=== PATIENT | male | born 1955 | race Caucasian/White ===

== ENCOUNTER 2017-09-15 23:11 | Emergency (ER) | payer OTHER, MEDICARE ==
--- NOTE | 2017-09-15 23:39 | ED DYSPNEA/ASTHMA COMPLAINT ---
History of Present Illness General Chief Complaint: Dyspnea (COPD, CHF, Other) Stated Complaint: "IM HAVING A PANIC ATTACKDIFF BREATHING" Source: patient Exam Limitations: no limitations Vital Signs & Intake/Output Vital Signs & Intake/Output Vital Signs Date Time Temp Pulse Resp B/P B/P Pulse O2 O2 Flow FiO2 Mean Ox Delivery Rate 09/154 97.4 77 19 148/83 97 Room Air ED Intake and Output 09/16 0000 09/15 1200 Intake Total Output Total Balance Patient 170 lb Weight Weight Reported by Patient Measurement Method Allergies Coded Allergies: No Known Allergies (09/15/17) Reconcile Medications Azithromycin (Zithromax) 500 MG TABLET 1 TAB PO DAILY BRONCHITIS Benzonatate (Tessalon Perle) 100 MG CAPSULE 1 CAP PO TID PRN INFLAMMATION [MAGIC MOUTH WASH] 10 ML PO TID PRN SORE THROAT Methylprednisolone. (Medrol) 4 MG TAB.DS.PK 1 DP PO AD INFLAMMATION 6 on day 1 then reduce by one tablet daily until gone Triage Note: PT TO ED WITH C/O SORE THROAT X 3 DAYS, REPORTS DIFFICULTY SWALLOWING. ABLE TO HANDLE SECRETIONS. SPEAKING IN FULL SENTENCES. 02 SAT 97%RA. ALSO REPORTS MILD SOB ON EXERTION. Triage Nurses Notes Reviewed? yes Onset: Gradual Duration: constant Timing: recent history Severity: moderate HPI: Patient is a 61-year-old male with a past medical history of COPD who is EVERYDAY smoker compliant with Ventolin and ANORA, diabetes who presents emergency room with concerns of a three-day history of sore throat and hoarseness of voice work today he has been complaining of nonproductive cough and painful swallowing where he became anxious due to shortness of breath symptoms earlier this afternoon. Patient states that the anxiety shortness of breath has improved however still complaining of sore throat. Patient can tolerate by mouth denies any chest pain and arm pain jaw pain nausea vomiting leg swelling or hemoptysis fever or chills. (Hector Tirado) Past History Travel History Traveled to [place] past 21 day No Medical History Any Pertinent Medical History? see below for history Cardiovascular: hypertension Respiratory: COPD Endocrine: diabetes Surgical History Surgical History: non-contributory Psychosocial History What is your primary language Chinese Tobacco Use: Current Daily Use Daily Tobacco Use Amount/Type: => 5 Cigarettes daily ETOH Use: denies use Family History Hx Contributory? No (Hector Tirado) Review of Systems Review of Systems Constitutional: Reports: no symptoms. EENTM: Reports: see HPI. Respiratory: Reports: see HPI, cough, short of breath. Cardiovascular: Reports: no symptoms. GI: Reports: no symptoms. Genitourinary: Reports: no symptoms. Musculoskeletal: Reports: no symptoms. Skin: Reports: no symptoms. Neurological/Psychological: Reports: see HPI, anxiety. Hematologic/Endocrine: Reports: no symptoms. Immunologic/Allergic: Reports: no symptoms. All Other Systems: Reviewed and Negative (Hector Tirado) Physical Exam Physical Exam General Appearance: no apparent distress, alert, comfortable Head: atraumatic Eyes: Bilateral: normal appearance. Ears, Nose, Throat: hearing grossly normal Neck: normal inspection Respiratory: normal breath sounds, chest non-tender, no respiratory distress Cardiovascular: regular rate/rhythm Gastrointestinal: normal bowel sounds, soft, non-tender Neurologic/Psych: no motor/sensory deficits Skin: intact, normal color, warm/dry Core Measures ACS in differential dx? Yes CVA/TIA Diagnosis No Sepsis Present: No Sepsis Focused Exam Completed? No (Hector Tirado) Progress Differential Diagnosis: asthma, AMI, bronchitis, costochondritis, CHF, COPD, musculoskeletal pain, pericarditis, pulmonary embolism, pneumonia, pneumothorax, rib fracture, unstable angina Plan of Care: Orders Procedure Date/time Status THROAT CULTURE W/QUICK STREP 09/16 8 Active TROPONIN LEVEL 09/16 8 Complete D-DIMER 09/16 8 Complete COMPREHENSIVE METABOLIC PANEL 09/16 8 Complete CBC WITHOUT DIFFERENTIAL 09/16 8 Complete EKG 09/16 8 Active Laboratory Tests 09/16/17 0030: Anion Gap 14, Estimated GFR > 60, BUN/Creatinine Ratio 13.8, Glucose 100 H, Calcium 9.5, Total Bilirubin 0.6, AST 24, ALT 31, Alkaline Phosphatase 69, Troponin I < 0.01, Total Protein 8.0, Albumin 4.7, Globulin 3.3, Albumin/ Globulin Ratio 1.4, D-Dimer High Sensitivty < 200, CBC w Diff NO MAN DIFF REQ, RBC 5.35, MCV 89.1, MCH 30.1, MCHC 33.7, RDW 15.1 H, MPV 7.3 L, Gran % 79.3 H , Lymphocytes % 13.1 L, Monocytes % 4.9, Eosinophils % 1.9, Basophils % 0.8, Absolute Granulocytes 11.5 H, Absolute Lymphocytes 1.9, Absolute Monocytes 0.7 H, Absolute Eosinophils 0.3, Absolute Basophils 0.1 Patient upon initial examination was resting comfortably at bedside (afebrile clear lungs auscultation oxygen saturation 96% room air. No exudates a pharynx CENTOR criteria [address] off [address] dr dorsey Initial ED EKG: normal intervals, normal p-waves, normal QRS complex, 65 BPM,NSR Hand-Off Endorsed To: Mich Dorsey MD Endorsed Time: 0100 Pending: labs (Hector Tirado) Departure Departure Disposition: HOME OR SELF CARE Condition: Stable Clinical Impression Primary Impression: Pharyngitis Referrals: Edith Bonds MD (PCP/Family) Additional Instructions: As discussed please discontinue smoking, began a prescription for magic mouthwash for sore throat and Tessalon Perles for cough Medrol Dosepak for inflammation and azithromycin for symptoms. If symptoms worsen return to emergency room. If no better on Tuesday follow-up with your doctor Departure Forms: Customer Survey General Discharge Information Prescriptions: Current Visit Scripts [MAGIC MOUTH WASH] 10 ML PO TID PRN SORE THROAT #100 ML Methylprednisolone. (Medrol) 1 DP PO AD #1 DP 6 on day 1 then reduce by one tablet daily until gone Benzonatate (Tessalon Perle) 1 CAP PO TID PRN INFLAMMATION #15 CAP Azithromycin (Zithromax) 1 TAB PO DAILY #5 TAB (Hector Tirado) Departure Time of Disposition: 146 PA/TEXTILE COATING MACHINE OPERATOR Co-Sign Statement Statement: ED Attending supervision documentation- x I saw and evaluated the patient. I have also reviewed all the pertinent lab results and diagnostic results. I agree with the findings and the plan of care as documented in the PA's/TEXTILE COATING MACHINE OPERATOR's documentation. [] I have reviewed the ED Record and agree with the PA's/TEXTILE COATING MACHINE OPERATOR's documentation. [] Additions or exceptions (if any) to the PAs/TEXTILE COATING MACHINE OPERATOR's note and plan are summarized below: [] (Mich Dorsey MD) Critical Care Note Critical Care Note Critical Care Time: non-applicable (Hector Tirado)
[2017-09-16 00:53] LABS: ABSOLUTE BASOPHIL COUNT 0.1 /CUMM (0.0-0.2); ABSOLUTE EOSINOPHIL COUNT 0.3 /CUMM (0.0-0.7); ABSOLUTE GRANULOCYTE CT 11.5 /CUMM (1.4-6.5); ABSOLUTE LYMPH COUNT 1.9 /CUMM (1.2-3.4); ABSOLUTE MONOCYTE COUNT 0.7 /CUMM (0.10-0.60); BASOPHIL % 0.8 % (0.0-2.0); EOSINOPHIL % 1.9 % (0-5); GRANULOCYTE % 79.3 % (42.2-75.2); HEMATOCRIT 47.7 % (42-52); MEAN CORPUSCULAR HGB 30.1 PG (27.0-31.0); MEAN CORPUSCULAR HGB CONC 33.7 G/DL (33.0-37.0); MEAN CORPUSCULAR VOLUME 89.1 FL (80.0-94.0); MEAN PLATELET VOLUME 7.3 FL (7.4-10.4); PLATELET COUNT 268 /CUMM (130-400); RBC DISTRIBUTION WIDTH 15.1 % (11.5-14.5); RED BLOOD CELL CT 5.35 /CUMM (4.70-6.10); WHITE BLOOD CELL COUNT 14.5 /CUMM (4.8-10.8)
[2017-09-16] MEDS ORDERED: ZITHROMAX500 M2 PO (00:57)
[2017-09-16] MEDS ORDERED: MAGIC MOUTH WASH PO (00:57)
[2017-09-16] MEDS ORDERED: MEDROL4 M2 PO ×2 (00:57→02:04)
[2017-09-16] MEDS ORDERED: TESSALON PERLE100 M1 PO ×2 (00:57→02:04)
[2017-09-16 01:49] VITALS: BP 145/78
[2017-09-16] MEDS ORDERED: IBUPROFEN600 M1 PO (02:00)
[2017-09-16] MEDS ORDERED: HYDROXYZINE HCL25 M2 PO (02:00)
[2017-09-16] MEDS ORDERED: Magic mouthwash PO (02:04)
[2017-09-16] MEDS ORDERED: ZITHROMAX250 M2 PO (02:04)
== END 2017-09-16 02:11 ==
LOC: ERH 23:11
PROVIDERS: Physician Assistant
DX: J02.9 Acute pharyngitis, unspecified (principal); F17.210 Nicotine dependence, cigarettes, uncomplicated
CPT/HCPCS: 1263; 93005; 93010

== ENCOUNTER 2018-01-10 05:07 | Emergency (ER) | payer OTHER, MEDICARE ==
[~2018-01-10 05:07] MED LIST: HYDROXYZINE HCL25 M2 PO; IBUPROFEN600 M1 PO; MAGIC MOUTH WASH PO; MEDROL4 M2 PO; Magic mouthwash PO; TESSALON PERLE100 M1 PO; ZITHROMAX250 M2 PO; ZITHROMAX500 M2 PO
--- NOTE | 2018-01-10 05:48 | ED DYSPNEA/ASTHMA COMPLAINT ---
History of Present Illness General Chief Complaint: Dyspnea (COPD, CHF, Other) Stated Complaint: "I CAN'T BREATH, PANCIK ATTACK"HR 75 AND SPO2 96% Source: patient, old records Exam Limitations: no limitations Vital Signs & Intake/Output Vital Signs & Intake/Output Vital Signs Date Time Temp Pulse Resp B/P B/P Pulse O2 O2 Flow FiO2 Mean Ox Delivery Rate 01/10 0513 97.7 64 20 145/78 94 Room Air Allergies Coded Allergies: No Known Allergies (09/15/17) Reconcile Medications Azithromycin (Zithromax) 250 MG TABLET 1 DP PO AD pharyngitis Start tomorrow Benzonatate (Tessalon Perle) 100 MG CAPSULE 1 CAP PO TID PRN cough Hydroxyzine Hydrochloride (Atarax) 25 MG TAB 1-2 TAB PO Q6P PRN anxiety Ibuprofen 600 MG TABLET 1 TAB PO Q6P PRN pain with food [Magic mouthwash] 5-10 ML PO Q6P PRN pain 1:1:1=viscous lidocaine, maalox, benadryl Methylprednisolone. (Medrol) 4 MG TAB.DS.PK 0 PO SEE ADMIN CRITERIA pharyngitis Triage Note: TRIAGE: PATIENT TO ER FROM HOME REPORTING HX COPD, HERE TONIGHT FOR COPD VS. "PANIC ATTACK." PATIENT REPORTING +SOB AT THIS TIME, "SCARES THE SH*T OUT OF ME." SPEECH CLEAR. MD PLUMMER EVALUATING PATIENT IN TRIAGE. Triage Nurses Notes Reviewed? yes HPI: Patient presents feeling like he can't breathe. Patient has emphysema and he continues to smoke. Patient states that he also suffers from panic attacks. Patient states that over the past 2 days he has been having worsening symptoms dyspnea on exertion and orthopnea. He states that he lays down and just feels like he cannot breathe so he sits up. Patient states that he has not slept in the past 2 days because of these symptoms. He denies any leg swelling or anorexia. There are no fevers or chills. There is no coughing. There is no chest pain. There are no palpitations. Past History Travel History Traveled to [place] past 21 day No Medical History Any Pertinent Medical History? see below for history Neurological: NONE EENT: NONE Cardiovascular: hypertension Respiratory: COPD Gastrointestinal: NONE Hepatic: NONE Renal: NONE Musculoskeletal: NONE Psychiatric: anxiety Endocrine: diabetes Blood Disorders: NONE Cancer(s): NONE NETWORK SUPPORT/Reproductive: NONE Surgical History Surgical History: non-contributory Psychosocial History What is your primary language Irish Tobacco Use: Current Daily Use Daily Tobacco Use Amount/Type: => 5 Cigarettes daily ETOH Use: occasional use Illicit Drug Use: denies illicit drug use Family History Hx Contributory? No Review of Systems Review of Systems Constitutional: Reports: no symptoms. EENTM: Reports: no symptoms. Respiratory: Reports: see HPI, cough, orthopnea, short of breath. Cardiovascular: Reports: no symptoms. GI: Reports: no symptoms. Genitourinary: Reports: no symptoms. Musculoskeletal: Reports: no symptoms. Skin: Reports: no symptoms. Neurological/Psychological: Reports: no symptoms. Hematologic/Endocrine: Reports: no symptoms. Immunologic/Allergic: Reports: no symptoms. All Other Systems: Reviewed and Negative Physical Exam Physical Exam General Appearance: well developed/nourished, alert, awake, anxious, moderate distress Head: atraumatic, normal appearance Eyes: Bilateral: PERRL, EOMI. Ears, Nose, Throat: normal pharynx, normal ENT inspection, hearing grossly normal Neck: normal inspection, supple, full range of motion, NO jvd Respiratory: decreased breath sounds, wheezing, respiratory distress Cardiovascular: regular rate/rhythm, normal peripheral pulses Gastrointestinal: normal bowel sounds, soft, non-tender, no organomegaly Extremities: normal inspection, normal capillary refill, normal range of motion, no edema Neurologic/Psych: no motor/sensory deficits, awake, alert, oriented x 3, normal gait, normal mood/affect Skin: intact, normal color, warm/dry Lymphatic: no anterior cervical pino Core Measures ACS in differential dx? No CVA/TIA Diagnosis No Sepsis Present: No Sepsis Focused Exam Completed? No Progress Differential Diagnosis: AMI, bronchitis, CHF, COPD, pulmonary embolism, pneumonia Plan of Care: Orders Procedure Date/time Status ARTERIAL BLOOD GAS (GEN) 01/10 0553 Complete Telemetry/Route Vending Machine Servicer 01/10 0548 Active TROPONIN LEVEL 01/10 0548 Complete COMPREHENSIVE METABOLIC PANEL 01/10 0548 Complete CBC WITHOUT DIFFERENTIAL 01/10 05 Complete B-TYPE NATRIURETIC PEP (BNP) 01/10 05 Complete EKG 01/10 0548 Active Laboratory Tests 01/10/ 0602: Anion Gap 10, Estimated GFR > 60, BUN/Creatinine Ratio 16.3, Glucose 112 H, Calcium 9.9, Total Bilirubin 0.7, AST 33, ALT 33, Alkaline Phosphatase 52, Troponin I < 0.01, Hyt-B-Nwrrkktmshr Pept 88.7, Total Protein 7.8, Albumin 4.8, Globulin 3.0, Albumin/Globulin Ratio 1.6, CBC w Diff MAN DIFF ORDERED, RBC 5.33, MCV 88.8, MCH 30.1, MCHC 33.9, RDW 14.7 H, MPV 7.2 L, Gran % 86.0 H, Lymphocytes % 7.2 L, Monocytes % 3.9, Eosinophils % 2.8, Basophils % 0.1, Absolute Granulocytes 11.0 H, Segmented Neutrophils 83 H, Absolute Lymphocytes 0.9 L, Lymphocytes 8 L, Monocytes 7, Absolute Monocytes 0.5, Eosinophils 2, Absolute Eosinophils 0.4, Absolute Basophils 0, Platelet Estimate ADEQUATE, Polychromasia 1+, Ovalocytes FEW, Stomatocytes FEW, Fld Total RBCs Counted 100 01/10/18 0555: pH 7.45, pCO2 35, pO2 61 L, HCO3 24, ABG O2 Sat (Measured) 92.0 L, P-50 (Temp Corrected) N, Carboxyhemoglobin 6.5 *H, O2 Concentration % RA, Phlebotomy Draw Site RIGHT BRACHIAL Diagnostic Imaging: Viewed by Me: Radiology Read. Discussed w/RAD: Radiology Read. Initial ED EKG: NSR, nonspecific ST T wave chg Prior EKG: unchanged Comments: Patient is feeling much better but still feels very anxious. Patient states he does suffer from anxiety but has not talked to his doctor about it. Patient denies any chest pain. Departure Departure Disposition: HOME OR SELF CARE Condition: Stable Clinical Impression Primary Impression: COPD exacerbation Secondary Impressions: Anxiety Referrals: Vamshi GALEAS,Edith Aguirre (PCP/Family) Additional Instructions: Take Ativan as needed. Return if symptoms worsen or for any concerns. Departure Forms: Customer Survey General Discharge Information Prescriptions: Current Visit Scripts Lorazepam (Ativan) 1 TAB PO BIDP PRN anxiety #20 TAB Critical Care Note Critical Care Note Critical Care Time: non-applicable
[2018-01-10 06:21] LABS: ABSOLUTE BASOPHIL COUNT 0 /CUMM (0.0-0.2); ABSOLUTE EOSINOPHIL COUNT 0.4 /CUMM (0.0-0.7); ABSOLUTE LYMPH COUNT 0.9 /CUMM (1.2-3.4); ABSOLUTE MONOCYTE COUNT 0.5 /CUMM (0.10-0.60); BASOPHIL % 0.1 % (0.0-2.0); EOSINOPHIL % 2.8 % (0-5); HEMATOCRIT 47.3 % (42-52); MEAN CORPUSCULAR HGB 30.1 PG (27.0-31.0); MEAN CORPUSCULAR HGB CONC 33.9 G/DL (33.0-37.0); MEAN CORPUSCULAR VOLUME 88.8 FL (80.0-94.0); MEAN PLATELET VOLUME 7.2 FL (7.4-10.4); PLATELET COUNT 243 /CUMM (130-400); RBC DISTRIBUTION WIDTH 14.7 % (11.5-14.5); RED BLOOD CELL CT 5.33 /CUMM (4.70-6.10); WHITE BLOOD CELL COUNT 12.8 /CUMM (4.8-10.8)
--- NOTE | 2018-01-10 06:42 | RADIOLOGY REPORT ---
EXAMINATION: XR CHEST CLINICAL INFORMATION: Shortness of breath COMPARISON: None TECHNIQUE: 2 views of the chest were obtained. FINDINGS: The lungs appear somewhat hyperinflated, suggesting underlying COPD. No focal consolidation. No evidence of pneumothorax, pulmonary edema, or pleural effusions. The cardiomediastinal silhouette is unremarkable. No acute osseous findings. IMPRESSION: No acute cardiopulmonary findings.
[2018-01-10] MEDS ORDERED: ATIVAN0.5 M1 PO (07:15)
[2018-01-10 07:30] VITALS: BP 140/80
== END 2018-01-10 07:50 ==
LOC: ERH 05:07
PROVIDERS: Emergency Medicine
DX: J44.1 Chronic obstructive pulmonary disease with (acute) exacerbation (principal); F41.9 Anxiety disorder, unspecified; I10 Essential (primary) hypertension; E11.9 Type 2 diabetes mellitus without complications; F17.210 Nicotine dependence, cigarettes, uncomplicated; F10.10 Alcohol abuse, uncomplicated
CPT/HCPCS: 1263; 71046; 93005; 93010